=== PATIENT | female | born 1940 | race Caucasian/White ===

== ENCOUNTER → 2016-06-18 | Outpatient (CLI) | payer MEDICARE ==
--- NOTE | 2016-06-18 09:33 | MM ---
Reason for exam: follow-up at short interval from prior study. Last mammogram was performed 6 months ago. History: Patient is postmenopausal. Family history of breast cancer in mother at age 50 and breast cancer in aunt at age 40. Benign excisional biopsy of the right breast, 1998. Physical Findings: Nurse did not find any significant physical abnormalities on exam. MG 3D Diag Mammo W/Cad RT CC and MLO view(s) were taken of the right breast. Prior study comparison: December 19, 2015, bilateral MG 3d screening mammo w/cad. December 16, 2014, mammogram, performed at [facility]. There are scattered fibroglandular densities. There is no discrete abnormality including are of concern. No significant new findings when compared with previous films. These results were verbally communicated with the patient and result sheet given to the patient on 06/18/16. ASSESSMENT: Benign, BI-RAD 2 RECOMMENDATION: Follow-up diagnostic mammogram of both breasts in 6 months.
== END | disposition home or self-care (01) ==
LOC: RADMAMWWP 08:31
PROVIDERS: ATTEND Surgery
DX: R92.8 Other abnormal and inconclusive findings on diagnostic imaging of breast (principal)
CPT/HCPCS: G0206; G0279

== ENCOUNTER → 2017-07-01 | Outpatient (CLI) | payer MEDICARE ==
--- NOTE | 2017-07-03 08:40 | MM ---
Reason for exam: screening (asymptomatic). Last mammogram was performed 1 year ago. History: Patient is postmenopausal. Family history of breast cancer in mother at age 50 and breast cancer in aunt at age 40. Benign excisional biopsy of the right breast, 1998. Physical Findings: A clinical breast exam by your physician is recommended on an annual basis and results should be correlated with mammographic findings. MG 3D Screening Mammo W/Cad Bilateral CC and MLO view(s) were taken. Prior study comparison: June 18, 2016, right breast MG 3d diag mammo w/cad RT. December 19, 2015, bilateral MG 3d screening mammo w/cad. The breast tissue is heterogeneously dense. This may lower the sensitivity of mammography. Nodular asymmetry central left breast CC view is more defined and incompletely disperse on the 3D images. Only seen on CC. ASSESSMENT: Incomplete: need additional imaging evaluation, BI-RAD 0 RECOMMENDATION: Special view mammogram of the left breast. If lesion persists on supplemental views, image directed ultrasound is recommended. [facility] will attempt to contact patient to return for supplemental views and ultrasound if indicated.
== END | disposition home or self-care (01) ==
LOC: RADMAMWWP 11:04
PROVIDERS: ATTEND Family Medicine
DX: Z12.31 Encounter for screening mammogram for malignant neoplasm of breast (principal)
CPT/HCPCS: 77063; 77067

== ENCOUNTER → 2017-07-03 | Outpatient (CLI) | payer MEDICARE ==
--- NOTE | 2017-07-03 14:40 | MM ---
Reason for exam: additional evaluation requested from abnormal screening. Last mammogram was performed less than 1 month ago. History: Patient is postmenopausal. Family history of breast cancer in mother at age 50, breast cancer in maternal aunt at age 40, and breast cancer in 2 maternal cousins. Benign excisional biopsy of the right breast, 1998. Physical Findings: Nurse did not find any significant physical abnormalities on exam. MG 3D Work Up W/Cad LT Spot compression CC, LM, and CCRL view(s) were taken of the left breast. Prior study comparison: July 01, 2017, bilateral MG 3d screening mammo w/cad. June 18, 2016, right breast MG 3d diag mammo w/cad RT. The breast tissue is heterogeneously dense. This may lower the sensitivity of mammography. There is no discrete abnormality including area of concern. No significant new findings when compared with previous films. These results were verbally communicated with the patient and result sheet given to the patient on 07/03/17. ASSESSMENT: Negative, BI-RAD 1 RECOMMENDATION: Return to routine screening mammogram schedule for both breasts.
== END | disposition home or self-care (01) ==
LOC: RADMAMWWP 14:04
PROVIDERS: ATTEND Family Medicine
DX: R92.8 Other abnormal and inconclusive findings on diagnostic imaging of breast (principal)
CPT/HCPCS: 77065; G0279; 77061

== ENCOUNTER 2021-08-02 15:41 | Emergency (ER) | payer MEDICARE, OTHER ==
[2021-08-02] MEDS ORDERED: SODIUM CHLORIDE 0.9% 500 ML 500 ML IV STA (16:10)
[2021-08-02] MEDS ORDERED: IBUPROFEN 600 MG TAB PO STA (16:10)
--- NOTE | 2021-08-02 17:49 | XR ---
EXAMINATION TYPE: XR chest 1V portable DATE OF EXAM: 08/02/2021 COMPARISON: NONE HISTORY: Pain TECHNIQUE: Single view FINDINGS: Heart and mediastinum are normal. Lungs are clear. Diaphragm is normal. Bony thorax is inta ct. No pleural effusion or pneumothorax. IMPRESSION: No active cardiopulmonary disease. Normal heart.
--- NOTE | 2021-08-02 17:57 | XR ---
EXAMINATION TYPE: XR shoulder complete LT DATE OF EXAM: 08/02/2021 COMPARISON: NONE HISTORY: Pain TECHNIQUE: 3 views FINDINGS: Glenohumeral joint is intact. There is hypertrophic spurring at the shoulder joint with jm nt space narrowing. AC joint is intact. IMPRESSION: Osteoarthritis. No fracture seen.
--- NOTE | 2021-08-02 17:58 | XR ---
EXAMINATION TYPE: XR humerus LT DATE OF EXAM: 08/02/2021 COMPARISON: NONE HISTORY: Pain TECHNIQUE: 2 views FINDINGS: There is spurring at the glenohumeral joint. Elbow joint appears intact. No sign of elbow j oint effusion. 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 No evidence of humerus fracture.
--- NOTE | 2021-08-02 17:59 | XR ---
EXAMINATION TYPE: XR pelvis AP view DATE OF EXAM: 08/02/2021 COMPARISON: NONE HISTORY: Pain TECHNIQUE: Single view FINDINGS: Pelvic ring is intact. 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 There is a protrusio of the prost hetic right acetabulum. Sacroiliac joints are intact. No fracture seen. IMPRESSION: No acute abnormality of the pelvis.
--- NOTE | 2021-08-02 18:00 | XR ---
EXAMINATION TYPE: XR elbow limited LT DATE OF EXAM: 08/02/2021 COMPARISON: NONE HISTORY: Pain TECHNIQUE: 2 views FINDINGS: Elbow joint spaces are normal. There is no fracture nor dislocation. Joint spaces are elvin l. IMPRESSION: Negative left elbow exam.
--- NOTE | 2021-08-02 18:12 | XR ---
EXAMINATION TYPE: XR forearm LT DATE OF EXAM: 08/02/2021 COMPARISON: NONE HISTORY: Pain TECHNIQUE: 2 views FINDINGS: Radius and ulna appear intact. Elbow joint and wrist joint appear intact. I see no fracture nor dislocation. IMPRESSION: Negative left forearm exam. No fracture
--- NOTE | 2021-08-02 18:14 | XR ---
EXAMINATION TYPE: XR hand complete LT DATE OF EXAM: 08/02/2021 COMPARISON: NONE HISTORY: Pain TECHNIQUE: 3 views FINDINGS: There is some narrowing of the third MP joint space. There is narrowing and spurring at mul tiple IP joints. There are small erosions. No fracture nor dislocation. There is narrowing and spurri ng at the scaphoid trapezium joint. IMPRESSION: Multiple areas of arthritic disease could be erosive type osteoarthritis. No fracture see n.
[2021-08-02 18:18] LABS: Basophils % (A) 1 %; Eosinophils # (A) 0.2 k/uL (0-0.7); Eosinophils % (A) 4 %; HCT 41.6 % (34.0-46.0); HGB 13.8 gm/dL (11.4-16.0); Lymphocytes # (A) 1.3 k/uL (1.0-4.8); Lymphocytes % (A) 22 %; MCH 31.5 pg (25.0-35.0); MCHC 33.2 g/dL (31.0-37.0); MCV 94.9 fL (80.0-100.0); Mean Platelet Volume 7.6; Monocytes # (A) 0.3 k/uL (0-1.0); Monocytes % (A) 6 %; Neutrophils % (A) 66 %; Platelet Count 247 k/uL (150-450); RBC 4.39 m/uL (3.80-5.40); RDW 13.1 % (11.5-15.5)
--- NOTE | 2021-08-02 18:18 | XR ---
EXAMINATION TYPE: XR wrist complete LT DATE OF EXAM: 08/02/2021 COMPARISON: NONE HISTORY: Pain TECHNIQUE: 4 views FINDINGS: There is narrowing and spurring at the first carpometacarpal joint. There is nondisplaced i ntra-articular fracture of the radial styloid process. No dislocation. IMPRESSION: Acute nondisplaced intra-articular radial styloid process fracture.
[2021-08-02 18:26] LABS: INR 0.9 (<1.2)
[2021-08-02 18:27] LABS: Partial Thromboplastin Time 22.2 sec (22.0-30.0); Prothrombin Time 10.3 sec (9.0-12.0)
[2021-08-02 18:28] LABS: ALT 17 U/L (4-34); AST 45 U/L (14-36); African American GFR (CKD) 83 (>60 ml/min/1.73 sqM); Albumin 4.4 g/dL (3.5-5.0); Alcohol <10 mg/dL; Alkaline Phosphatase 51 U/L (38-126); Anion Gap 6 mmol/L; Blood Urea Nitrogen 26 mg/dL (7-17); Calcium 9.2 mg/dL (8.4-10.2); Carbon Dioxide 27 mmol/L (22-30); Chloride 103 mmol/L (98-107); Glucose 96 mg/dL (74-99); Non-African American GFR(CKD) 72 (>60 ml/min/1.73 sqM); Sodium 136 mmol/L (137-145); Total Bilirubin 1.1 mg/dL (0.2-1.3); Total Protein 7.3 g/dL (6.3-8.2)
[2021-08-02 18:34] LABS: Potassium 5.7 mmol/L (3.5-5.1)
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
[2021-08-02] MEDS ORDERED: HYDROcodone/APAP 5-325MG 1 EACH TAB PO STA (20:20)
[2021-08-02 20:45] VITALS: BP 132/77; PULSE 71; RESP 18; TEMP 98
== END 2021-08-02 20:53 | disposition home or self-care (01) ==
LOC: EC 15:41
DX: S52.515A Nondisplaced fracture of left radial styloid process, initial encounter for closed fracture (principal); E78.5 Hyperlipidemia, unspecified; V89.2XXA Person injured in unspecified motor-vehicle accident, traffic, initial encounter
CPT/HCPCS: 36415; 71045; 72170; 80053; 80320; 84484; 85025; 85610; 85730; 86850; 86900; 86901; 93005

== ENCOUNTER 2021-11-20 18:49 | Observation (INO) | payer MEDICARE ==
[2021-11-20 19:39] LABS: Basophils # (A) 0.1 k/uL (0-0.2); Basophils % (A) 1 %; Eosinophils # (A) 0.4 k/uL (0-0.7); Eosinophils % (A) 9 %; HCT 39.6 % (34.0-46.0); HGB 13.2 gm/dL (11.4-16.0); Lymphocytes # (A) 1.2 k/uL (1.0-4.8); Lymphocytes % (A) 28 %; MCH 31.1 pg (25.0-35.0); MCHC 33.2 g/dL (31.0-37.0); MCV 93.6 fL (80.0-100.0); Mean Platelet Volume 8.4; Monocytes # (A) 0.3 k/uL (0-1.0); Monocytes % (A) 7 %; Neutrophils # (A) 2.3 k/uL (1.3-7.7); Neutrophils % (A) 52 %; Platelet Count 172 k/uL (150-450); RBC 4.23 m/uL (3.80-5.40); RDW 13.1 % (11.5-15.5); WBC 4.4 k/uL (3.8-10.6)
--- NOTE | 2021-11-20 19:41 | XR ---
EXAMINATION TYPE: XR chest 2V DATE OF EXAM: 11/20/2021 COMPARISON: 08/02/2021 HISTORY: Chest pain TECHNIQUE: 2 views FINDINGS: Heart is normal. There is small linear density at the left lung base. The other lung may are clear. There are no hilar masses. Mediastinum is normal. Bony thorax is intact no pleural effusi on. IMPRESSION: Mild subsegmental atelectasis left lung base appears new compared to the old exam. Normal heart
[2021-11-20 19:44] LABS: Albumin 4.1 g/dL (3.5-5.0); Calcium 9.1 mg/dL (8.4-10.2); Magnesium 2.1 mg/dL (1.6-2.3); Partial Thromboplastin Time 23.1 sec (22.0-30.0); Potassium 4.7 mmol/L (3.5-5.1); Prothrombin Time 10.5 sec (9.0-12.0); Total Bilirubin 0.4 mg/dL (0.2-1.3); Total Protein 6.3 g/dL (6.3-8.2)
[2021-11-20] MEDS ORDERED: ASPIRIN 81 MG PO STA (23:37)
--- NOTE | 2021-11-20 23:41 | ED ---
Chest Pain HPI - General Chief Complaint: Chest Pain Stated Complaint: A fib, Chest pressure Time Seen by Provider: 11/20/21 23:20 Source: patient, RN notes reviewed Mode of arrival: wheelchair - History of Present Illness Initial Comments: This is a pleasant 81-year-old female who had chest discomfort earlier this evening. Patient states she went to take a nap and woke up and had pressure in her substernal area. Patient states this lasted several minutes and then seemed vital. There is no radiation. No shortness of breath. No diaphoresis. Patient recently diagnosed with atrial fibrillation and has been evaluated by cardiology. Patient in the midst of being evaluated. Patient apparently is scheduled to have a stress test coming up at the end of this month. She does take 81 mg aspirin daily as well as metoprolol which she was given since being diagnosed with atrial fibrillation. Patient also has thyroid supplementation. Patient states that the pain is subsided at this time. However she is very anxious regarding this situation. Patient is a nonsmoker. No headache, no fever or chills, no changes in vision or hearing, no sore throat or difficulty with speech, no neck pain, no chest pain or shortness of breath, no abdominal pain, no nausea or vomiting, no changes in urination or bowel movements, no numbness or tingling, no extremity pain, no skin rashes or lesions. Past medical, surgical, social, and family history reviewed. Patient being followed by Dr. Marinelli - Related Data Previous Rx's Medication Instructions Recorded HYDROcodone/APAP 5-325MG [[place] 1 tab PO Q6HR PRN 3 Days #12 tab 08/02/21 5-325] Allergies Allergy/AdvReac Type Severity Reaction Status Date / Time No Known Allergies Allergy Verified 11/20/21 18:55 Review of Systems ROS Statement: Those systems with pertinent positive or pertinent negative responses have been documented in the HPI. ROS Other: All systems not noted in ROS Statement are negative. EKG Findings - EKG Comments: EKG Findings:: EKG done at 7 PM shows atrial fibrillation with a rate of 77, nonspecific ST-T wave abnormality. Other intervals are normal. Normal axis. With ED attending physician. No previous study available Past Medical History Past Medical History: Atrial Fibrillation, Hyperlipidemia, Thyroid Disorder Additional Past Medical History / Comment(s): 3 miscarriages History of Any Multi-Drug Resistant Organisms: None Reported Past Surgical History: Hysterectomy Additional Past Surgical History / Comment(s): still has one ovary Past Psychological History: Anxiety Smoking Status: Never smoker Past Alcohol Use History: None Reported Past Drug Use History: None Reported General Exam General appearance: alert, in no apparent distress Head exam: Present: atraumatic, normocephalic, normal inspection Eye exam: Present: normal appearance, PERRL, EOMI. Absent: scleral icterus, conjunctival injection, periorbital swelling ENT exam: Present: normal exam, mucous membranes dry, mucous membranes moist, normal external ear exam Neck exam: Present: normal inspection, full ROM. Absent: tenderness, meningismus, lymphadenopathy Respiratory exam: Present: normal lung sounds bilaterally. Absent: respiratory distress, wheezes, rales, rhonchi, stridor, chest wall tenderness, accessory muscle use, decreased breath sounds, prolonged expiratory Cardiovascular Exam: Present: regular rate, normal rhythm, normal heart sounds. Absent: systolic murmur, diastolic murmur, rubs, gallop, clicks GI/Abdominal exam: Present: soft, normal bowel sounds. Absent: distended, tenderness, guarding, rebound, rigid Extremities exam: Present: normal inspection, full ROM, normal capillary refill. Absent: tenderness, pedal edema, joint swelling, calf tenderness Back exam: Present: normal inspection Neurological exam: Present: alert, oriented X3, CN II-XII intact Psychiatric exam: Present: normal affect, normal mood Skin exam: Present: warm, dry, intact, normal color. Absent: rash Course Vital Signs 11/20/21 11/21/21 11/21/21 18:52 00:37 01:30 Temperature 98.0 F Pulse Rate 81 80 Pulse Rate [ 80 Apical] Respiratory 16 16 Rate Blood Pressure 149/94 136/78 O2 Sat by Pulse 94 L Oximetry Chest Pain MDM - MDM The case was discussed in detail with ED attending physician. Presentation, findings, treatment plan discussed in detail. Order Department Supervisor Dr. Miranda Disposition Clinical Impression: Chest pain Disposition: ADMITTED IP TO THIS HOSP Condition: Stable Time of Disposition: 23:37 Decision to Admit Reason: Admit from EC Decision Time: 23:37
[2021-11-20] MEDS ORDERED: HEPARIN SOD,PORK IN 0.45% NACL 25,000 UNIT in 0.45% NACL 1 250ML.BAG IV SCH (23:45)
[2021-11-20] MEDS ORDERED: HEPARIN SODIUM 1,000 UN/ML (10ML VL) IV PRN (23:46)
[2021-11-20] MEDS ORDERED: HEPARIN SODIUM 1,000 UN/ML (10ML VL) IV ONE (23:46)
[2021-11-21] MEDS ORDERED: NALOXONE 0.4 MG/ML 1 ML VIAL IV PRN (00:07)
[2021-11-21] MEDS ORDERED: ACETAMINOPHEN TAB 325 MG TAB PO PRN (00:07)
[2021-11-21] MEDS ORDERED: ALPRAZolam 0.25 MG TAB PO PRN (00:07)
[2021-11-21] MEDS ORDERED: TEMAZEPAM 15 MG CAP PO PRN (01:30)
[2021-11-21 03:54] LABS: Basophils # (A) 0.1 k/uL (0-0.2); Basophils % (A) 1 %; Eosinophils # (A) 0.6 k/uL (0-0.7); Eosinophils % (A) 11 %; HCT 38.8 % (34.0-46.0); HGB 12.7 gm/dL (11.4-16.0); Lymphocytes # (A) 1.7 k/uL (1.0-4.8); Lymphocytes % (A) 31 %; MCH 30.9 pg (25.0-35.0); MCHC 32.8 g/dL (31.0-37.0); MCV 94.2 fL (80.0-100.0); Mean Platelet Volume 8.2; Monocytes # (A) 0.4 k/uL (0-1.0); Monocytes % (A) 8 %; Neutrophils # (A) 2.5 k/uL (1.3-7.7); Neutrophils % (A) 46 %; Platelet Count 153 k/uL (150-450); RBC 4.12 m/uL (3.80-5.40); RDW 13.2 % (11.5-15.5); WBC 5.4 k/uL (3.8-10.6)
[2021-11-21 04:27] LABS: Prothrombin Time 11.1 sec (9.0-12.0)
--- NOTE | 2021-11-21 05:10 | P.HPIM ---
History of Present Illness H&P Date: 11/21/21 Chief Complaint: chest pain 81 year old female with afib recently diagnosed not on blood thinners. , hypothyroid patient comes in for evaluation of sudden onset chest pain , that started after taking a nap. was associated with dizziness and central chest pressure, but jerome es any nausea , vomiting, SOB, palpitation , or profuse sweating. she denies any exercise intolerance at baseline, however, she does admit going through some stressful time. she was recently diagnosed with afib, and was started on atenolol and aspirin, she had an echocardiogram recently , and scheduled for a stress test next week . otherwise , denies any fever, chills, URI, abd pain , changes in bowel or urinary habits. blood work in the ED unremarkable , CXR no acute pathology EKG afib she denies smoking, illicit drugs , or alcohol Review of Systems Pertinent positives as noted in HPI. All other systems were reviewed and are negative Past Medical History Past Medical History: Atrial Fibrillation, Hyperlipidemia, Thyroid Disorder Additional Past Medical History / Comment(s): 3 miscarriages History of Any Multi-Drug Resistant Organisms: None Reported Past Surgical History: Hysterectomy Additional Past Surgical History / Comment(s): still has one ovary Past Psychological History: Anxiety Smoking Status: Never smoker Past Alcohol Use History: None Reported Past Drug Use History: None Reported - Past Family History family Additional Family Medical History / Comment(s): no CAD Medications and Allergies Home Medications Medication Instructions Recorded Confirmed Type HYDROcodone/APAP 5-325MG [[place] 1 tab PO Q6HR PRN 3 Days #12 tab 08/02/21 Rx 5-325] Allergies Allergy/AdvReac Type Severity Reaction Status Date / Time No Known Allergies Allergy Verified 11/20/21 18:55 Physical Exam Vitals: Vital Signs Temp Pulse Pulse Resp BP Pulse Ox 11/21/21 04:33 76 16 138/82 98 11/21/21 01:30 80 16 136/78 94 L 11/21/21 00:37 80 11/20/21 18:52 98.0 F 81 16 149/94 Intake and Output 11/20/21 11/20/21 11/21/21 14:59 22:59 06:59 Other: Weight 60.328 kg Constitutional: No acute distress, conversant, pleasant Eyes: Anicteric sclerae, moist conjunctiva, Pupils equal round reactive to light ENMT: NC/AT Oropharynx clear, no erythema, or exudates Neck: Supple, no masses, or JVD No carotid bruits No thyromegaly Lungs: Clear to auscultation Clear to percussion Normal respiratory effort, no accessory muscle use Cardiovascular: Heart irregular in rate and rhythm, No murmurs, gallops, or rubs No peripheral edema Abdominal: Soft Nontender, no guarding, rebound or rigidity Abdomen moving with respiration Normoactive bowel sounds No hepatomegaly, No splenomegaly No palpable mass No abdominal wall hernia noted Skin: Normal temperature, tone, texture, turgor No induration No subcutaneous nodules No rash, lesions No ulcers Extremities: No digital cyanosis No clubbing Pedal pulses intact and symmetrical Radial pulses intact and symmetrical No calf tenderness Psychiatric: Alert and oriented to person, place and time Appropriate affect fair judgement Neuro Muscles Strength 5/5 in all 4 extremities Sensation to light touch grossly present throughout Cranial nerves II-XII grossly intact No focal sensory deficits Lymphatics: no palpable cervical or supraclavicular , or inguinal lymph no elier Results CBC & Chem 7: 11/21/21 03:37 11/20/21 19:23 Labs: Abnormal Lab Results - Last 24 Hours (Table) 11/20/21 Range/Units 19:23 BUN 23 H (7-17) mg/dL Glucose 106 H (74-99) mg/dL Assessment and Plan Assessment: atypical chest pain rule out ACS EKG no acute changes CXR no acute pathology trops negative X2 residential monitor monitor vital signs ASA, statin cardiology consult A1c, lipid panel , TSH pain control afib CHADSVASc =3 started on heparin drip continue atenolol check thyroid function hypothyroid levothyroxin full code DVT on heparin drip
[2021-11-21] MEDS ORDERED: LEVOTHYROXINE 88 MCG TAB PO SCH (06:30)
[2021-11-21] MEDS ORDERED: CAFFEINE CITRATE 60 MG/3 ML VIAL IV PRN (08:06)
[2021-11-21] MEDS ORDERED: AMINOPHYLLINE 500 MG/20 ML VIAL IV PRN (08:06)
[2021-11-21] MEDS ORDERED: REGADENOSON 0.4 MG/5 ML SYRINGE IV PRN (08:06)
--- NOTE | 2021-11-21 08:19 | P.CRDCN ---
History of Present Illness History of present illness: HISTORY OF PRESENTING ILLNESS Patient is a pleasant 81-year-old female with history of hypothyroidism, recently diagnosed persistent atrial fibrillation who normally follows with Dr. Manning. She was seen by primary care physician and noted to be in atrial fibrillation and therefore referred to Dr. Manning for further workup. She did undergo workup with echo, results currently not available and also was scheduled for a stress test however the first time she went to get the stress test done, she was to tachycardia and therefore test was canceled. Overall she has been fairly asymptomatic from the atrial fibrillation. Unfortunately yesterday she had been doing a fair amount of paperwork and then went down for a nap and then started to develop chest discomfort and feeling like she was going to . She admits to feeling somewhat anxious during this episode. She came to emergency department and had to wait a few hours until she got back over blood pressure 149/94 and heart rate 81 on presentation. EKG shows atrial fibrillation with controlled heart rates with nonspecific minimal ST depressions. She admits to chest pain slowly improved over the course of a few hours. Denies any association with exertion. Denies any nausea or diaphoresis. Troponins normal 4. REVIEW OF SYSTEMS At the time of my exam: CONSTITUTIONAL: Denies fever or chills. CARDIOVASCULAR: +chest pain, shortness of breath, orthopnea, PND or palpitations. RESPIRATORY: Denies cough. GASTROINTESTINAL: Denies abdominal pain, diarrhea, constipation, nausea or vomiting. MUSCULOSKELETAL: Denies myalgias. NEUROLOGIC: Denies numbness, tingling or weakness. ENDOCRINE: Denies fatigue, weight change, polydipsia or polyurina. GENITOURINARY: Denies burning, hematuria or urgency with micturation. HEMATOLOGIC: Denies history of anemia or bleeding. PHYSICAL EXAMINATION Vital signs reviewed. CONSTITUTIONAL: No apparent distress. HEENT: Head is normocephalic. Pupils are equal, round. Sclerae anicteric. Mucous membranes of the mouth are moist. No JVD. No carotid bruit. CHEST EXAMINATION: Lungs are clear to auscultation. No chest wall tenderness is noted on palpation or with deep breathing. HEART EXAMINATION: Irregular rate and rhythm. S1, S2 heard. No murmurs, gallops or rub. ABDOMEN: Soft, nontender. Positive bowel sounds. EXTREMITIES: 2+ peripheral pulses, no lower extremity edema and no calf t enderness. NEUROLOGIC EXAMINATION: Patient is awake, alert and oriented x3. ASSESSMENT 1. Atypical chest pain, troponins normal 4. Acute cornea syndrome ruled out. May be related to anxiety versus other 2. Persistent atrial fibrillation with controlled ventricular rates 3. Abnormal EKG 4. Hypothyroidism PLAN We will obtain previous echo performed in the office. Chest pain overall appea rs somewhat atypical however we will check a Lexiscan stress test for further evaluation. If unremarkable, patient may be discharged home from a cardiology standpoint with outpt followup with Dr Rivera in 1 week. Past Medical History Past Medical History: Atrial Fibrillation, Hyperlipidemia, Thyroid Disorder Additional Past Medical History / Comment(s): 3 miscarriages History of Any Multi-Drug Resistant Organisms: None Reported Past Surgical History: Hysterectomy Additional Past Surgical History / Comment(s): still has one ovary Past Psychological History: Anxiety Smoking Status: Never smoker Past Alcohol Use History: None Reported Past Drug Use History: None Reported - Past Family History family Additional Family Medical History / Comment(s): no CAD Medications and Allergies Home Medications Medication Instructions Recorded Confirmed Type Apixaban [Eliquis] 5 mg PO DIRECTED 11/21/21 11/21/21 History Levothyroxine Sodium [Synthroid] 12.5 mcg PO DAILY 11/21/21 11/21/21 History Levothyroxine Sodium [Synthroid] 75 mcg PO DAILY 11/21/21 11/21/21 History atenoloL [Tenormin] 25 mg PO DAILY 11/21/21 11/21/21 History Allergies Allergy/AdvReac Type Severity Reaction Status Date / Time No Known Allergies Allergy Verified 11/21/21 07:51 Physical Exam Vitals: Vital Signs Temp Pulse Pulse Resp BP Pulse Ox 11/21/21 07:36 91 18 130/86 94 L 11/21/21 06:55 82 18 129/87 94 L 11/21/21 04:33 76 16 138/82 98 11/21/21 01:30 80 16 136/78 94 L 11/21/21 00:37 80 11/20/21 18:52 98.0 F 81 16 149/94 Intake and Output 11/20/21 11/21/21 11/21/21 22:59 06:59 14:59 Intake Total 52.724 Balance 52.724 Intake: Intake, IV Titration 52.724 Amount Heparin Sod,Pork in 0.45% 52.724 NaCl 25,000 unit In 0.45 % NaCl 1 250ml.bag @ 12 UNITS/KG/HR 7.239 mls/hr IV .Q24H [facility] Rx#: [id number] Other: Weight 60.328 kg Results 11/21/21 03:37 11/20/21 19:23 Cardiac Enzymes 11/20/21 11/20/21 11/21/21 Range/Units 19:23 19:23 00:18 AST 29 (14-36) U/L Troponin I <0.012 <0.012 (0.000-0.034) ng/mL 11/21/21 11/21/21 Range/Units 03:37 06:07 AST (14-36) U/L Troponin I <0.012 <0.012 (0.000-0.034) ng/mL Coagulation 11/20/21 11/21/21 11/21/21 Range/Units 19:23 03:37 06:07 PT 10.5 11.1 (9.0-12.0) sec APTT 23.1 68.5 H (22.0-30.0) sec CBC 11/20/21 11/21/21 Range/Units 19:23 03:37 WBC 4.4 5.4 (3.8-10.6) k/uL RBC 4.23 4.12 (3.80-5.40) m/uL Hgb 13.2 12.7 (11.4-16.0) gm/dL Hct 39.6 38.8 (34.0-46.0) % Plt Count 172 153 (150-450) k/uL Comprehensive Metabolic Panel 11/20/21 Range/Units 19:23 Sodium 140 (137-145) mmol/L Potassium 4.7 (3.5-5.1) mmol/L Chloride 102 (98-107) mmol/L Carbon Dioxide 28 (22-30) mmol/L BUN 23 H (7-17) mg/dL Creatinine 0.76 (0.52-1.04) mg/dL Glucose 106 H (74-99) mg/dL Calcium 9.1 (8.4-10.2) mg/dL AST 29 (14-36) U/L ALT 26 (4-34) U/L Alkaline Phosphatase 71 (38-126) U/L Total Protein 6.3 (6.3-8.2) g/dL Albumin 4.1 (3.5-5.0) g/dL Current Medications Generic Name Dose Route Start Last Admin Trade Name Freq PRN Reason Stop Dose Admin Acetaminophen 650 mg 11/21/21 00:07 Acetaminophen Tab 325 Mg Tab PO Q6HR PRN Mild Pain or Fever > 100.5 Alprazolam 0.25 mg 11/21/21 00:07 11/21/21 00:36 Alprazolam 0.25 Mg Tab PO 0.25 mg Q6HR PRN Administration Anxiety Aminophylline 100 mg 11/21/21 08:06 Aminophylline 500 Mg/20 Ml Vial IV 11/21/21 12:07 ONCE PRN Patient Response Aspirin 81 mg 11/21/21 09:00 Aspirin 81 Mg PO DAILY NATIVIDAD Atenolol 25 mg 11/21/21 09:00 Atenolol 25 Mg Tab PO DAILY NATIVIDAD Caffeine Citrate 60 mg 11/21/21 08:06 Caffeine Citrate 60 Mg/3 Ml Vial IV 11/21/21 12:07 ONCE PRN Patient Response Famotidine 20 mg 11/21/21 09:00 Famotidine 20 Mg Tab PO BID NATIVIDAD Heparin Sodium (Porcine) 0 unit 11/20/21 23:46 Heparin Sodium 1,000 Un/Ml (10ml Vl) IV PER PROTOCOL PRN Low PTT Protocol Heparin Sodium/Sodium Chloride 250 mls @ 7.239 mls/hr 11/20/21 23:45 11/21/21 07:31 25,000 unit/ Sodium Chloride IV 10 units/kg/hr .Q24H [facility]IV[facility] 6.033 mls/hr Titration Protocol 12 UNITS/KG/HR Levothyroxine Sodium 88 mcg 11/21/21 06:30 11/21/21 07:35 Levothyroxine 88 Mcg Tab PO 88 mcg DAILY@0630 NATIVIDAD Administration Naloxone HCl 0.2 mg 11/21/21 00:07 Naloxone 0.4 Mg/Ml 1 Ml Vial IV Q2M PRN Opioid Reversal Regadenoson 0.4 mg 11/21/21 08:06 Regadenoson 0.4 Mg/5 Ml Syringe IV 11/21/21 12:07 ONCE PRN Per Protocol Temazepam 15 mg 11/21/21 01:30 Temazepam 15 Mg Cap PO HS PRN Insomnia Intake and Output 11/20/21 11/21/21 11/21/21 22:59 06:59 14:59 Intake Total 52.724 Balance 52.724 Intake: Intake, IV Titration 52.724 Amount Heparin Sod,Pork in 0.45% 52.724 NaCl 25,000 unit In 0.45 % NaCl 1 250ml.bag @ 12 UNITS/KG/HR 7.239 mls/hr IV .Q24H [facility] Rx#: [id number] Other: Weight 60.328 kg 11/21/21 03:37 11/20/21 19:23
[2021-11-21] MEDS ORDERED: ASPIRIN 81 MG PO SCH (09:00)
[2021-11-21] MEDS ORDERED: atenoloL 25 MG TAB PO SCH (09:00)
[2021-11-21] MEDS ORDERED: FAMOTIDINE 20 MG TAB PO SCH (09:00)
--- NOTE | 2021-11-21 12:42 | NM ---
EXAMINATION TYPE: NM stress lexiscan cardiolite DATE OF EXAM: 11/21/2021 COMPARISON: NONE HISTORY: TECHNIQUE: After the intravenous administration of 9.6 mCi Tc 99m Sestamibi - Cardiolite resting SPE CT images acquired 75 minutes post injection. The patient received 0.4mg Lexiscan, 25.3 mCi Tc 99m Sestamibi - Stress images obtained [address] injection FINDINGS: Review of stress and rest SPECT images demonstrates no distinct perfusion abnormality. Gated analysi s shows normal wall motion with an estimated left ventricular ejection fraction of 59 %. IMPRESSION: No scintigraphic evidence for reversible ischemia.
[2021-11-21 14:18] VITALS: BP 111/72; PULSE 89; RESP 17; TEMP 97.8
--- NOTE | 2021-11-21 16:20 | P.DS ---
Providers Date of admission: 11/21/21 01:06 Expected date of discharge: 11/21/21 Attending physician: Clair Lam MD Consults: 11/21/21 00:07 Consult Physician Urgent Consulting Provider: Bing Marinelli Consult Reason/Comments: Chest pain, atrial fibrillation Do you want consulting provider notified?: Yes, Notify in am Primary care physician: Sridevi Kwokballad healthrafi Hospital Course: Discharge Diagnosis: Atypical chest pain Atrial fibrillation Hypothyroidism Hospital Course: 81-year-old female with history of atrial fibrillation, newly diagnosed, hypothyroidism presented with sudden onset chest pain. She recently started seeing cardiology. Had an echocardiogram in the office, was scheduled for a stress test next week. Troponin were negative, chest pain subsided. Patient was evaluated by cardiology in the hospital. DEXA scan stress test showed no evidence of reversible ischemia, ejection fraction of 59%. Patient was not previously on anticoagulation for atrial fibrillation. She will be started on eliquis at discharge. She has a follow-up with cardiology in about 1 week. Patient seen and examined at bedside. Vital signs reviewed and stable. General: nontoxic, no distress, appears at stated age Derm: warm, dry Head: atraumatic, normocephalic, symmetric Eyes: EOMI, no lid lag, anicteric sclera Mouth: no lip lesion, mucus membranes moist Cardiovascular: S1S2 irregular, no murmur Lungs: CTA bilateral, no rhonchi, no rales , no accessory muscle use Abdominal: soft, nontender to palpation, no guarding, no appreciable organomegaly Ext: no gross muscle atrophy, no edema, no contractures Neuro: CN II-XI grossly intact, no focal neuro deficits Psych: Alert, oriented, appropriate affect A total of 36 minutes of time were spent preparing this complex discharge summary. Patient was discharged on 11/21/21 at 14:00. Patient Condition at Discharge: Stable Plan - Discharge Summary New Discharge Prescriptions: Continue atenoloL [Tenormin] 25 mg PO DAILY Levothyroxine Sodium [Synthroid] 12.5 mcg PO DAILY Levothyroxine Sodium [Synthroid] 75 mcg PO DAILY Changed Apixaban [Eliquis] 5 mg PO BID #60 tab Discharge Medication List Apixaban [Eliquis] 5 mg PO BID #60 tab 11/21/21 [Rx] Levothyroxine Sodium [Synthroid] 12.5 mcg PO DAILY 11/21/21 [History] Levothyroxine Sodium [Synthroid] 75 mcg PO DAILY 11/21/21 [History] atenoloL [Tenormin] 25 mg PO DAILY 11/21/21 [History] Follow up Appointment(s)/Referral(s): Sridevi Duvall [Primary Care Provider] - 1-2 days Patient Instructions/Handouts: Chest Pain (DC), Anxiety (GEN) Discharge Disposition: HOME SELF-CARE
--- NOTE | 2021-11-22 12:42 | CA ---
Lexiscan Nuclear Stress Test Report Name: Alisha Garland Exam Date: 11/21/2021 10:16 Exam Location: [place] Stress Ht (in): 69 Wt (lb): 133 BSA: 1.74 Ordering Phys: Rodríguez Campuzano DO Referring Phys: CAMPUZANO Technologist: Adolfo Huitron Age: 81 Gender: F : 1940 Procedure CPT: Indications: Reflex order-Stress test ICD-10 Codes: Patient History: Chest Pain Medications: Meds past 24 hrs: Pretest Chest Pain: STRESS TEST Lexiscan Protocol Exercise Duration (min:sec): 01:[address] Depressions (mm): Angina Score: Cuellar Score: Resting HR (bpm): 77 Peak HR (bpm): 111 Resting BP (mmHg): 148 / 89 Peak BP (mmHg): 131 / 77 MPHR: 141 Target HR: 120 % MPHR: 79 METS: 1.0 Total Dose: Peak Dose: Atropine: Double Product: 15828 BP Response: Stress Termination: INFUSION COMPLETE Stress Symptoms: FATIGUE Stress Summary: ECG ANALYSIS Resting ECG: Stress ECG: CONCLUSIONS At baseline EKG showed atrial fibrillation with controlled ventricular rate, nonspecific minimal 0.[address] depressions in the inferior lateral leads. Patient recieved IV infusion of Lexiscan 0.4mg and at peak infusion EKG showed mild accentuation of ST depressions which is nonspecific given baseline EKG abnormalities. Conclusions: 1. Nonspecific EKG portion given baseline EKG abnormality 2. Nuclear imaging to be reported separately. Dr. Rodríguez Campuzano DO (Electronically Signed) Final Date: 21 November 2021 13:03
== END 2021-11-21 14:42 | disposition home or self-care (01) ==
LOC: EC 18:49 → 6NMEDSUR 11-21 01:06
PROVIDERS: ADMIT Internal Medicine; ATTEND Internal Medicine
DX: R07.89 Other chest pain (principal); I48.19 Other persistent atrial fibrillation; E78.5 Hyperlipidemia, unspecified; F41.9 Anxiety disorder, unspecified; E03.9 Hypothyroidism, unspecified; R94.31 Abnormal electrocardiogram [ECG] [EKG]; Z79.82 Long term (current) use of aspirin; Z79.890 Hormone replacement therapy; Z79.899 Other long term (current) drug therapy; Z90.710 Acquired absence of both cervix and uterus; Z90.721 Acquired absence of ovaries, unilateral; Z87.59 Personal history of other complications of pregnancy, childbirth and the puerperium
CPT/HCPCS: 96366 ×2; 96376; 96365; 99285; 36415 ×2; 93005; 93017; 80053; 84443; 83735; 84484 ×2; 85025 ×2; 85610 ×2; 85730 ×2; 71046; 78452; G0378; A9500; J1644 ×2; J2785

== ENCOUNTER 2021-12-04 16:33 | Emergency (ER) | payer MEDICARE ==
[2021-12-04 16:51] VITALS: PULSE 83; RESP 16; TEMP 98.1
[2021-12-04 17:14] LABS: Appearance,Urine Clear (Clear); Bilirubin,Urine Negative (Negative); Blood,Urine Negative (Negative); Color,Urine Light Yellow; Glucose,Urine (UA) Negative (Negative); Ketones,Urine Negative (Negative); Leukocyte Esterase,Urine Small (Negative); Mucus,Urine Rare /hpf; Nitrite,Urine Negative (Negative); Protein,Urine Negative (Negative); Specific Gravity,Urine 1.008 (1.001-1.035); Squamous Epithelial Cell,Urine <1 /hpf (0-4); Urobilinogen,Urine <2.0 mg/dL (<2.0); WBC,Urine 2 /hpf (0-5)
[2021-12-04 19:45] LABS: Basophils # (A) 0.1 k/uL (0-0.2); Basophils % (A) 1 %; Eosinophils # (A) 0.4 k/uL (0-0.7); Eosinophils % (A) 6 %; HCT 37.9 % (34.0-46.0); HGB 12.6 gm/dL (11.4-16.0); Lymphocytes # (A) 1.5 k/uL (1.0-4.8); Lymphocytes % (A) 23 %; MCHC 33.3 g/dL (31.0-37.0); Mean Platelet Volume 8.6; Monocytes # (A) 0.4 k/uL (0-1.0); Monocytes % (A) 6 %; Neutrophils # (A) 3.9 k/uL (1.3-7.7); Neutrophils % (A) 62 %; Platelet Count 176 k/uL (150-450); RBC 4.08 m/uL (3.80-5.40); RDW 12.9 % (11.5-15.5); WBC 6.3 k/uL (3.8-10.6)
[2021-12-04 20:16] LABS: Albumin 4.2 g/dL (3.5-5.0); Calcium 9.1 mg/dL (8.4-10.2); Potassium 4.5 mmol/L (3.5-5.1); Total Bilirubin 0.4 mg/dL (0.2-1.3); Total Protein 6.4 g/dL (6.3-8.2)
[2021-12-04 20:54] VITALS: BP 133/88
--- NOTE | 2021-12-04 21:02 | ED ---
General Adult HPI - General Chief complaint: Abdominal Pain Stated complaint: bump in groin area Time Seen by Provider: 12/04/21 17:43 Source: patient Mode of arrival: ambulatory Limitations: no limitations - History of Present Illness Initial comments: Dictation was produced using [employer] dictation software. please excuse any grammatical, word or spelling errors. Chief Complaint: 81-year-old female presents emergency department for left groin bulge History of Present Illness: 81-year-old female she has history of hernia to her left inguinal area. Patient states that she over the last couple days has been having enlargement of the left groin area. Several years ago she had a hernia repaired to that area. She does complain of nausea. No vomiting. Denies any pain. She denies any obstipation. No fever constitutional symptoms. The ROS documented in this emergency department record has been reviewed and confirmed by me. Those systems with pertinent positive or negative responses have been documented in the HPI. All other systems are other negative and/or noncontributory. PHYSICAL EXAM: General Impression: Alert and oriented x3, not in acute distress HEENT: Normocephalic atraumatic, extra-ocular movements intact, pupils equal and reactive to light bilaterally, mucous membranes moist. Cardiovascular: Heart regular rate and rhythm Chest: Able to complete full sentences, no retractions, no tachypnea Abdomen: abdomen soft, non-tender, non-distended, no organomegaly, no tympany, palpable inguinal mass worse with Valsalva Musculoskeletal: Pulses present and equal in all extremities, no peripheral edema Motor: no focal deficits noted Neurological: CN II-XII grossly intact, no focal motor or sensory deficits noted Skin: Intact with no visualized rashes Psych: Normal affect and mood ED course: 81 y Old female presents emergency department for left inguinal hernia. Patient not showing any signs of strangulation. Signs upon arrival are within acceptable limits. No concerns of bowel obstruction. Laboratory evaluation obtained. CBC, metabolic panel, abdominal labs are negative. Urinalysis is negative. Abdominal x-ray shows no acute abdomen. No signs of obstruction. Patient reevaluated at bedside at 9:30 PM found with stable medical condition. This point patient does not have any high-risk hernia features. Patient feels well and is agreeable for discharge. EKG interpretation: Ventricular rate 84, A. fib, QS 90, QTC 425. no QTC prolongation, no ST or T-wave changes noted. EKG compared to 11/20/2021 showing no changes. Overall, this EKG is unremarkable - Related Data Home Medications Medication Instructions Recorded Confirmed Levothyroxine Sodium [Synthroid] 12.5 mcg PO DAILY 11/21/21 11/21/21 Levothyroxine Sodium [Synthroid] 75 mcg PO DAILY 11/21/21 11/21/21 atenoloL [Tenormin] 25 mg PO DAILY 11/21/21 11/21/21 Previous Rx's Medication Instructions Recorded Apixaban [Eliquis] 5 mg PO BID #60 tab 11/21/21 Allergies Allergy/AdvReac Type Severity Reaction Status Date / Time No Known Allergies Allergy Verified 12/04/21 16:51 Review of Systems ROS Statement: Those systems with pertinent positive or pertinent negative responses have been documented in the HPI. ROS Other: All systems not noted in ROS Statement are negative. Past Medical History Past Medical History: Atrial Fibrillation, Hyperlipidemia, Thyroid Disorder Additional Past Medical History / Comment(s): 3 miscarriages History of Any Multi-Drug Resistant Organisms: None Reported Past Surgical History: Hernia Repair, Hysterectomy Additional Past Surgical History / Comment(s): still has one ovary Past Psychological History: Anxiety Smoking Status: Never smoker Past Alcohol Use History: None Reported Past Drug Use History: None Reported - Past Family History family Additional Family Medical History / Comment(s): no CAD General Exam Limitations: no limitations Course Vital Signs 12/04/21 12/04/21 16:47 20:48 Temperature 98.1 F Pulse Rate 83 Respiratory 16 Rate Blood Pressure 110/79 133/88 O2 Sat by Pulse 97 Oximetry Medical Decision Making - Lab Data Result diagrams: 12/04/21 19:39 12/04/21 19:39 Lab Results 12/04/21 12/04/21 12/04/21 Range/Units 16:59 19:39 19:39 WBC 6.3 (3.8-10.6) k/uL RBC 4.08 (3.80-5.40) m/uL Hgb 12.6 (11.4-16.0) gm/dL Hct 37.9 (34.0-46.0) % MCV 93.0 (80.0-100.0) fL MCH 31.0 (25.0-35.0) pg MCHC 33.3 (31.0-37.0) g/dL RDW 12.9 (11.5-15.5) % Plt Count 176 (150-450) k/uL MPV 8.6 Neutrophils % 62 % Lymphocytes % 23 % Monocytes % 6 % Eosinophils % 6 % Basophils % 1 % Neutrophils # 3.9 (1.3-7.7) k/uL Lymphocytes # 1.5 (1.0-4.8) k/uL Monocytes # 0.4 (0-1.0) k/uL Eosinophils # 0.4 (0-0.7) k/uL Basophils # 0.1 (0-0.2) k/uL Sodium 138 (137-145) mmol/L Potassium 4.5 (3.5-5.1) mmol/L Chloride 103 (98-107) mmol/L Carbon Dioxide 26 (22-30) mmol/L Anion Gap 9 mmol/L BUN 21 H (7-17) mg/dL Creatinine 0.80 (0.52-1.04) mg/dL Est GFR (CKD-EPI)AfAm 81 (>60 ml/min/1.73 sqM) Est GFR (CKD-EPI)NonAf 71 (>60 ml/min/1.73 sqM) Glucose 118 H (74-99) mg/dL Plasma Lactic Acid John (0.7-2.0) mmol/L Calcium 9.1 (8.4-10.2) mg/dL Total Bilirubin 0.4 (0.2-1.3) mg/dL AST 28 (14-36) U/L ALT 28 (4-34) U/L Alkaline Phosphatase 76 (38-126) U/L Total Protein 6.4 (6.3-8.2) g/dL Albumin 4.2 (3.5-5.0) g/dL Urine Color Light Yellow Urine Appearance Clear (Clear) Urine pH 7.0 (5.0-8.0) Ur Specific [place] 1.008 (1.001-1.035) Urine Protein Negative (Negative) Urine Glucose (UA) Negative (Negative) Urine Ketones Negative (Negative) Urine Blood Negative (Negative) Urine Nitrite Negative (Negative) Urine Bilirubin Negative (Negative) Urine Urobilinogen <2.0 (<2.0) mg/dL Ur Leukocyte Esterase Small H (Negative) Urine WBC 2 (0-5) /hpf Ur Squamous Epith Cells <1 (0-4) /hpf Urine Mucus Rare H (None) /hpf 12/04/21 Range/Units 19:39 WBC (3.8-10.6) k/uL RBC (3.80-5.40) m/uL Hgb (11.4-16.0) gm/dL Hct (34.0-46.0) % MCV (80.0-100.0) fL MCH (25.0-35.0) pg MCHC (31.0-37.0) g/dL RDW (11.5-15.5) % Plt Count (150-450) k/uL MPV Neutrophils % % Lymphocytes % % Monocytes % % Eosinophils % % Basophils % % Neutrophils # (1.3-7.7) k/uL Lymphocytes # (1.0-4.8) k/uL Monocytes # (0-1.0) k/uL Eosinophils # (0-0.7) k/uL Basophils # (0-0.2) k/uL Sodium (137-145) mmol/L Potassium (3.5-5.1) mmol/L Chloride (98-107) mmol/L Carbon Dioxide (22-30) mmol/L Anion Gap mmol/L BUN (7-17) mg/dL Creatinine (0.52-1.04) mg/dL Est GFR (CKD-EPI)AfAm (>60 ml/min/1.73 sqM) Est GFR (CKD-EPI)NonAf (>60 ml/min/1.73 sqM) Glucose (74-99) mg/dL Plasma Lactic Acid John 0.8 (0.7-2.0) mmol/L Calcium (8.4-10.2) mg/dL Total Bilirubin (0.2-1.3) mg/dL AST (14-36) U/L ALT (4-34) U/L Alkaline Phosphatase (38-126) U/L Total Protein (6.3-8.2) g/dL Albumin (3.5-5.0) g/dL Urine Color Urine Appearance (Clear) Urine pH (5.0-8.0) Ur Specific [place] (1.001-1.035) Urine Protein (Negative) Urine Glucose (UA) (Negative) Urine Ketones (Negative) Urine Blood (Negative) Urine Nitrite (Negative) Urine Bilirubin (Negative) Urine Urobilinogen (<2.0) mg/dL Ur Leukocyte Esterase (Negative) Urine WBC (0-5) /hpf Ur Squamous Epith Cells (0-4) /hpf Urine Mucus (None) /hpf Disposition Clinical Impression: Inguinal hernia Disposition: HOME SELF-CARE Condition: Good Instructions (If sedation given, give patient instructions): Inguinal Hernia (ED) Is patient prescribed a controlled substance at d/c from ED?: No Referrals: Carrie Pineda MD [STAFF PHYSICIAN] - 1-2 days Time of Disposition: 21:47
--- NOTE | 2021-12-04 21:18 | XR ---
EXAMINATION TYPE: XR abdomen 1V DATE OF EXAM: 12/04/2021 COMPARISON: NONE HISTORY: Left groin pain. Large bulge. TECHNIQUE: 2 views of the right FINDINGS: There is no sign of intestinal obstruction or pneumoperitoneum. Fecal pattern is normal. No evidence of a mass. There are bilateral hip prosthesis. Lung bases show some mild atelectasis. There are chest leads. No pathologic calcifications. IMPRESSION: Nonacute abdomen. There is evidence for mild bilateral lower lobe pulmonary atelectasis m ainly on the right side.
== END 2021-12-04 21:53 | disposition home or self-care (01) ==
LOC: EC 16:33
DX: K40.90 Unilateral inguinal hernia, without obstruction or gangrene, not specified as recurrent (principal); I48.91 Unspecified atrial fibrillation; E78.5 Hyperlipidemia, unspecified; E07.9 Disorder of thyroid, unspecified
CPT/HCPCS: 36415; 74018; 80053; 81001; 83605; 85025; 93005; 99284

== ENCOUNTER → 2022-09-17 | Outpatient (CLI) | payer MEDICARE ==
--- NOTE | 2022-09-18 23:10 | MR ---
EXAMINATION TYPE: MR brain wo/w con DATE OF EXAM: 09/17/2022 8:50 PM CLINICAL INDICATION:Female, 82 years old with history of F03.90; Memory problems, Neoplasm, CVA, Atyp ical dementia COMPARISON: None TECHNIQUE: Multi planar, multi sequence imaging was performed through the brain including: T1, T2, In version recovery, susceptibility weighted imaging and gradient echo imaging and Diffusion weighted im aging. The patient was then given intravenous contrast and multi planar, T1 fat-saturation images wer e obtained. IV Contrast: 7 cc Gadavist FINDINGS: Dural based lesion in the right Meckel cave immediately abuts the right MCA measuring 12 x 12 x 16 mm with predominantly homogenous postcontrast enhancement. Additional lesion along the falx posteriorly in the posterior cranial fossa near midline measuring 5 mm also present with similar homogenous post contrast enhancement. The barnett-white junctions, ventricular system, basal cisterns appear unremarkable. Diffusion-weighted imaging shows no evidence of restricted diffusion to suggest acute/subacute infarct. Intracranial art erial flow voids are maintained. Midline structures show no abnormality. Scattered foci of high T2 si gnal intensity are seen within the periventricular white matter. The susceptibility weighted images t iny foci of blooming artifact within the left cerebellum compatible with micro-hemorrhage. The bone marrow signal is within normal limits. Paranasal sinuses and mastoid air cells: No significant paranasal sinus disease. Visualized orbits: Orbital contents are intact. IMPRESSION: 1. There are at least 2 dural based lesions present. There is somewhat homogenous enhancement. Findi ngs could represent metastatic disease in the setting of malignancy provided in history. Other etiolo gies could include benign etiology such as a meningioma. Given the right lesion near the arterial vas culature/right MCA aneurysm is not entirely excluded. CTA brain would help provide clarity. Compariso ns with priors at outside institution would be of benefit. 2. No evidence of intra-axial mass, or acute/subacute infarct. 3. Nonspecific white matter changes, likely related to small vessel ischemic disease
== END | disposition home or self-care (01) ==
LOC: RADMRIMAIN 19:29
PROVIDERS: ATTEND Psychiatry & Neurology Neurology
DX: I63.9 Cerebral infarction, unspecified (principal); F03.90 Unspecified dementia, unspecified severity, without behavioral disturbance, psychotic disturbance, mood disturbance, and anxiety; G93.9 Disorder of brain, unspecified; R90.82 White matter disease, unspecified
CPT/HCPCS: 70553; A9585

== ENCOUNTER → 2022-10-02 | Outpatient (CLI) | payer MEDICARE ==
[2022-10-02 10:06] LABS: African American GFR (CKD) 80 (>60 ml/min/1.73 sqM); Blood Urea Nitrogen 24 mg/dL (7-17); Non-African American GFR(CKD) 69 (>60 ml/min/1.73 sqM)
--- NOTE | 2022-10-02 11:27 | CT ---
EXAMINATION TYPE: CT angio head CT DLP: 2089.8 mGycm, Automated exposure control for dose reduction was used. DATE OF EXAM: 10/02/2022 10:52 AM COMPARISON: MR brain 09/17/2022. 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 Axial images are supplemented with 3D recon structions which were post-processed at an independent workstation. NASCET criteria used. FINDINGS: No evidence of acute intracranial hemorrhage, mass effect, or midline shift. Peripheral calcified dur al based lesion the right Meckel's cave measuring 1.7 cm corresponding to prior MRI. Additional dural based lesion along the falx posteriorly in the posterior cranial fossa near midline is demonstrated measuring up to 7 mm. No enhancement identified on the CTA. The ventricles, sulci, and cisterns are u nremarkable. Age-appropriate cerebral volume loss. Patchy areas of hypodensity identified within the periventricular white matter. The visualized portions of the internal carotid arteries, middle cerebral arteries, anterior cerebral arteries, and posterior cerebral arteries are patent. 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 The basilar and vertebral arteries are patent. No acute osseous abnormality. IMPRESSION: 1. No evidence of high-grade stenosis. 2. Redemonstration of dural based lesion in the right Meckel Cave with peripheral calcification andrew uring up to 1.7 cm. No enhancement identified. This is favored represent a meningioma however a throm bosed aneurysm is not entirely excluded. Follow-up examination in 6 months is recommended. 3. Redemonstration of 7 mm dural based lesion along the falx posteriorly. No contrast enhancement id entified. This is favored to represent a meningioma. 4. Nonspecific white matter changes likely related to chronic small vessel ischemic disease.
== END | disposition home or self-care (01) ==
LOC: RADCTMAIN 09:32
PROVIDERS: ATTEND Psychiatry & Neurology Neurology
DX: I72.0 Aneurysm of carotid artery (principal); G93.89 Other specified disorders of brain; R90.82 White matter disease, unspecified
CPT/HCPCS: 82565; 84520; 70496; 36415; Q9967

== ENCOUNTER → 2022-10-30 | Outpatient (CLI) | payer MEDICARE | END | disposition home or self-care (01) | LOC: LABWHC1 13:53 | PROVIDERS: ATTEND Psychiatry & Neurology Neurology | DX: D51.9 Vitamin B12 deficiency anemia, unspecified (principal) | CPT/HCPCS: 36415; 82607 ==

== ENCOUNTER 2024-07-15 19:58 | Emergency (ER) | payer MEDICARE ==
--- NOTE | 2024-07-15 20:39 | CT ---
EXAMINATION TYPE: CT brain zariine wo con DATE OF EXAM: 07/15/2024 8:13 PM COMPARISON: None. CLINICAL INDICATION: Female, 84 years old with history of fall on thinners, fall on thinners, pt stat es she has dementia, pain TECHNIQUE: CT of the brain is performed utilizing 3 mm thick sections through the posterior fossa and 3 mm thick sections through the remaining calvarium. Study is performed within 24 hours of arrival to the hospital. Contrast used: mL of , (none if empty) CT DLP: 1400 mGycm, Automated exposure control for dose reduction was used. FINDINGS: No abnormal hyperdensity is present to suggest an acute intracranial hemorrhage. There is a 1.7 cm mass at the right internal carotid artery bifurcation, present previously and stabl e. This may represent a thrombosed aneurysm or meningioma. No additional suspicious masses are eviden t. No acute infarcts are evident. Periventricular white matter hypodensity is present likely on the bas is of chronic white matter ischemic changes. Ventricles and sulci are prominent for the patient age. Paranasal sinuses and mastoid air cells within the [id number] are clear. Soft tissue swelling is over the right parietal occipital region. No underlying fracture is evident. IMPRESSIONS: 1. No acute intracranial process. Follow-up MRI can be performed as clinically indicated. 2. Stable appearing aneurysm right suprasellar space. 3. Atrophy with chronic appearing periventricular white matter ischemic change. 4. Soft tissue swelling right parietal occipital region CT cervical spine. COMPARISON: None TECHNIQUE: CT of the cervical spine is performed in the axial plane at 2 mm thick sections. Reconstr ucted images in the coronal, and sagittal plane are reviewed on the computer. FINDINGS: No acute fractures are evident. Vertebral body alignment is normal. Degenerative disc changes with loss of disc height is present C3-4 through C6-7. Posterior spinal hernandez ellar line is intact. Vertebral body heights are preserved. No spinal canal stenosis is evident. Uncovertebral joint hypertrophy is contributing to foraminal stenosis bilaterally at C3-4, C4-5, C5-6 and C6-7 IMPRESSION: 1. Degenerative disc change and bilateral uncovertebral joint hypertrophy contributing to foraminal s tenosis. 2. No acute osseous abnormality cervical spine [facility], , 07/15/2024 8:36 PM
--- NOTE | 2024-07-15 20:44 | ED ---
Fall HPI - General Chief Complaint: Fall Stated Complaint: Fall Time Seen by Provider: 07/15/24 19:59 Source: EMS Mode of arrival: EMS - History of Present Illness Initial Comments: 84-year-old female presents to the emergency department after head injury. Patient is coming from home. Had a fall at 7:00. She was sitting in a chair when she lost her balance and fell backwards. Hit her head on the corner of a chair. Patient is on Eliquis. Denies loss of consciousness. Denies headache or visual changes. No lateralizing weakness. C-collar was in place. She d enies any neck pain. No alteration from her baseline. She does have dementia. She has extensive repetitive questioning and mumbling which the daughter states is typical for her dementia. It does make her have difficulty communicating at baseline. Patient is denying pain anywhere else in her body. She does have a notable bruise over her left hand. No other alleviating, precipitating or modif israel factors - Related Data Home Medications Medication Instructions Recorded Confirmed Levothyroxine Sodium [Synthroid] 12.5 mcg PO DAILY 11/21/21 11/21/21 Levothyroxine Sodium [Synthroid] 75 mcg PO DAILY 11/21/21 11/21/21 atenoloL [Tenormin] 25 mg PO DAILY 11/21/21 11/21/21 Previous Rx's Medication Instructions Recorded Apixaban [Eliquis] 5 mg PO BID #60 tab 11/21/21 Allergies Allergy/AdvReac Type Severity Reaction Status Date / Time No Known Allergies Allergy Verified 07/15/24 20:40 Review of Systems ROS Statement: Those systems with pertinent positive or pertinent negative responses have been documented in the HPI. ROS Other: All systems not noted in ROS Statement are negative. Past Medical History Past Medical History: Atrial Fibrillation, Hyperlipidemia, Thyroid Disorder Additional Past Medical History / Comment(s): 3 miscarriages History of Any Multi-Drug Resistant Organisms: None Reported Past Surgical History: Hernia Repair, Hysterectomy Additional Past Surgical History / Comment(s): still has one ovary Past Psychological History: Anxiety Smoking Status: Never smoker Past Alcohol Use History: None Reported Past Drug Use History: None Reported - Past Family History family Additional Family Medical History / Comment(s): no CAD General Exam Limitations: physical limitation General appearance: alert, anxious Head exam: Present: normocephalic, other (Laceration to the right occiput measuring 4 cm. Laceration to the left eyebrow measuring 1 cm) Eye exam: Present: normal appearance, PERRL, EOMI. Absent: scleral icterus, conjunctival injection, periorbital swelling ENT exam: Present: normal exam, mucous membranes moist Neck exam: Present: normal inspection. Absent: tenderness, meningismus, lymphadenopathy Respiratory exam: Present: normal lung sounds bilaterally. Absent: respiratory distress, wheezes, rales, rhonchi, stridor Cardiovascular Exam: Present: regular rate, normal rhythm, normal heart sounds. Absent: systolic murmur, diastolic murmur, rubs, gallop, clicks GI/Abdominal exam: Present: soft, normal bowel sounds. Absent: distended, tenderness, guarding, rebound, rigid Extremities exam: Present: normal inspection, full ROM, normal capillary refill. Absent: tenderness, pedal edema, joint swelling, calf tenderness Back exam: Present: normal inspection Neurological exam: Present: alert, CN II-XII intact Psychiatric exam: Present: anxious Skin exam: Present: warm, dry, intact, normal color. Absent: rash Course Vital Signs 07/15/24 07/15/24 07/15/24 20:12 22:04 23:31 Temperature 97.6 F Pulse Rate 83 98 84 Respiratory 18 18 20 Rate Blood Pressure 123/78 107/76 106/79 O2 Sat by Pulse 97 96 97 Oximetry 07/16/24 00:38 Temperature 97.4 F L Pulse Rate 71 Respiratory 18 Rate Blood Pressure 91/60 O2 Sat by Pulse 95 Oximetry Procedures - Laceration Laceration #1 Consent Obtained: verbal consent Indication: laceration Site: scalp Size (cm): 4 Description: irregular Depth: simple, single layer Anesthetic Used: lidocaine 1% Anesthesia Technique: local infiltration Amount (mls): 8 Pre-repair: wound explored, irrigated extensively, deep structures intact Technique: simple, interrupted Patient Tolerated Procedure: well, no complications Additional Comments: 5 nikolay Medical Decision Making - Medical Decision Making Was pt. sent in by a medical professional or institution (, PA, AUTOMOTIVE AIRCONDITIONING MECHANIC, urgent care, hospital, or senior living...) When possible be specific @ -No Did you speak to anyone other than the patient for history (EMS, parent, family, police, friend...)? What history was obtained from this source @ -Spoke with EMS and daughter for history Did you review nursing and triage notes (agree or disagree)? Why? @ -I reviewed and agree with nursing and triage notes Were old charts reviewed (outside hosp., previous admission, EMS record, old EKG, old radiological studies, urgent care reports/EKG's, senior living records)? Report findings @ -No old charts were reviewed Differential Diagnosis (chest pain, altered mental status, abdominal pain women, abdominal pain men, vaginal bleeding, weakness, fever, dyspnea, syncope, headache, dizziness, GI bleed, back pain, seizure, CVA, palpatations, mental health, musculoskeletal)? @ -Subarachnoid, subdural, skull fracture, laceration, abrasion EKG interpreted by me (3pts min.). @ -Yes which demonstrates A-fib with a rate of 86. QRS 89. QTc of 429. Mild ST depression V3. No acute ST segment elevation X-rays interpreted by me (1pt min.). @ -Yes which demonstrates no acute process CT interpreted by me (1pt min.). @ -Yes which demonstrates no acute process U/S interpreted by me (1pt. min.). @ -None done What testing was considered but not performed or refused? (CT, X-rays, U/S, labs)? Why? @ -None What meds were considered but not given or refused? Why? @ -None Did you discuss the management of the patient with other professionals (professionals i.e. , PA, AUTOMOTIVE AIRCONDITIONING MECHANIC, lab, RT, psych nurse, social work job titles, hack saw operator, teacher, operations officer trust department, case management director)? Give summary @ -No Was smoking cessation discussed for >3mins.? @ -No Was critical care preformed (if so, how long)? @ -No Were there social determinants of health that impacted care today? How? (Homelessness, low income, unemployed, alcoholism, drug addiction, transportation, low edu. Level, literacy, decrease access to med. care, alf, rehab)? @ -No Was there de-escalation of care discussed even if they declined (Discuss DNR or withdrawal of care, Hospice)? DNR status @ -No What co-morbidities impacted this encounter? (DM, HTN, Smoking, COPD, CAD, Cancer, CVA, ARF, Chemo, Hep., AIDS, mental health diagnosis, sleep apnea, morbid obesity)? @ -Dementia with expressive aphasia Was patient admitted / discharged? Hospital course, mention meds given and route, prescriptions, significant lab abnormalities, going to OR and other pertinent info. @ -Upon arrival patient seen and evaluated in bed 23. Thorough history and physical exam was performed. Patient goes for CT of her head and neck. X-ray of the left hand was performed. I did perform Dermabond repair of the left forehead laceration as well as staple repair of the right occiput laceration. Patient is placed in a compression wrap. She will be discharged home as she is at her baseline. Instructed follow-up with her doctor in 2 to 4 days and return for any new or worsening symptoms Undiagnosed new problem with uncertain prognosis? @ -No Drug Therapy requiring intensive monitoring for toxicity (Heparin, Nitro, Insulin, Cardizem)? @ -No Were any procedures done? @ -Laceration repair with nikolay Diagnosis/symptom? @ -Acute fall, blunt head trauma, left forehead laceration, right occipital laceration, history of dementia with expressive aphasia Acute, or Chronic, or Acute on Chronic? @ -Acute Uncomplicated (without systemic symptoms) or Complicated (systemic symptoms)? @ -Complicated Side effects of treatment? @ -No Exacerbation, Progression, or Severe Exacerbation? @ -No Poses a threat to life or bodily function? How? (Chest pain, [place], [place], pneumonia, PE, COPD, DKA, ARF, appy, cholecystitis, CVA, Diverticulitis, Homicidal, Suicidal, threat to staff... and all critical care pts) @ -No Disposition Clinical Impression: Fall, Head injury, Scalp laceration, Facial laceration Disposition: HOME SELF-CARE Condition: Stable Instructions (If sedation given, give patient instructions): Head Injury (ED), Staple Care (ED), Facial Laceration (ED) Additional Instructions: If possible, please wait a few days before showering your hair. You may then use water and shampoo to gently cleanse the area. Nikolay must be removed in 7 days. Please do not put any ointments on the facial laceration as this will breakdown the glue. Follow-up with your doctor for reevaluation and return for any new or worsening symptoms Is patient prescribed a controlled substance at d/c from ED?: No Referrals: None,Stated [Primary Care Provider] - 1-2 days Time of Disposition: 23:16
--- NOTE | 2024-07-15 22:19 | XR ---
EXAMINATION TYPE: XR hand limited LT DATE OF EXAM: 07/15/2024 10:09 PM COMPARISON: 08/02/2021 CLINICAL INDICATION: Female, 84 years old with history of trauma, pain, fall TECHNIQUE: 2 view(s) obtained. FINDINGS: Left hand is examined in 2 projections. Diffuse narrowing of joint spaces is present. The structures are osteoporotic. This may make occult fracture identification difficult. Soft tissues appear normal. Patient remains on the ring finger. Advanced degenerative change at the proximal interphalangeal jm nt space ring finger and distal interphalangeal joint space index finger IMPRESSION: 1. . Degenerative changes through the joint spaces left hand. 2. No acute osseous abnormality radiographically apparent. 3. Osteoporosis [facility], , 07/15/2024 10:17 PM
[2024-07-15] MEDS: TOPICAL SKIN ADHESIVE 1 EACH AMP TOPICAL ONE (23:07)
[2024-07-16 00:43] VITALS: BP 91/60; PULSE 71; RESP 18; TEMP 97.4
== END 2024-07-16 00:58 | disposition home or self-care (01) ==
LOC: EC 19:58
DX: S01.01XA Laceration without foreign body of scalp, initial encounter (principal); S01.81XA Laceration without foreign body of other part of head, initial encounter; W07.XXXA Fall from chair, initial encounter
CPT/HCPCS: 12002; 12011; 70450; 72125; 93005; 99284